=== PATIENT | male | born 1980 | race Caucasian/White ===

== ENCOUNTER 2018-05-26 13:04 | Emergency (ER) | payer MEDICAID ==
[2018-05-26] MEDS: DEXAMETHASONE 10 MG/ML 1 ML INJ IV (15:01)
[2018-05-26] MEDS: KETOROLAC 30 MG INJ IV (15:02)
[2018-05-26 15:12] LABS: ADD MAN DIFF? NO
[2018-05-26 15:13] LABS: BASOPHIL # 0.1 10^3/ul (0.0-0.1); BASOPHILS % 0.4 % (0.0-2.0); EOSINOPHILS # 0.1 10^3/ul (0.0-0.5); EOSINOPHILS % 0.7 % (0.0-7.0); HEMATOCRIT 46.9 % (42.0-52.0); HEMOGLOBIN 15.9 g/dl (14.0-18.0); LYMPHOCYTES # 2.5 10^3/ul (0.8-2.9); LYMPHOCYTES % 14.7 % (15.0-51.0); MEAN CORPUSCULAR HEMOGLOBIN 31.4 pg (29.0-33.0); MEAN CORPUSCULAR HGB CONC 33.9 g/dl (32.0-37.0); MEAN CORPUSCULAR VOLUME 92.5 fl (82.0-101.0); MEAN PLATELET VOLUME 9.4 fl (7.4-10.4); MONOCYTES % 5.9 % (0.0-11.0); NEUTROPHIL # 13.3 10^3/ul (1.6-7.5); NEUTROPHILS % 77.8 % (39.0-77.0); PLATELET COUNT 363 10^3/UL (140-415); RED BLOOD COUNT 5.07 10^6/ul (4.70-6.10); RED CELL DISTRIBUTION WIDTH 12.1 % (11.5-14.5)
[2018-05-26 15:13] LABS: WHITE BLOOD COUNT 17.1 10^3/ul (4.8-10.8)
[2018-05-26] MEDS: CLINDAMYCIN 600 MG/D5W (PMX) 50 ML IVPB (15:15)
[2018-05-26] MEDS: SOD CHLORIDE 0.9% 1,000 ML IV (15:25)
[2018-05-26 15:41] LABS: ALANINE AMINOTRANSFERASE 38 IU/L (13-69); ALBUMIN 4.7 g/dl (3.3-4.9); ALBUMIN/GLOBULIN RATIO 1.34; ALKALINE PHOSPHATASE 105 IU/L (42-121); ANION GAP 15 (8-16); ASPARTATE AMINO TRANSFERASE 30 IU/L (15-46); BILIRUBIN,INDIRECT 0.6 mg/dl (0-1.1); BILIRUBIN,TOTAL 0.6 mg/dl (0.2-1.3); BLOOD UREA NITROGEN 12 mg/dl (7-20); CALCIUM 9.9 mg/dl (8.4-10.2); CARBON DIOXIDE 23 mmol/L (21-31); CHLORIDE 111 mmol/L (97-110); CREATININE 0.76 mg/dl (0.61-1.24); GLUCOSE 96 mg/dl (70-220); POTASSIUM 4.4 mmol/L (3.5-5.1); SODIUM 145 mmol/L (135-144); TOTAL PROTEIN 8.2 g/dl (6.1-8.1)
[2018-05-26] MEDS: IOHEXOL 300MG/ML 150 ML BTL (17:38)
[2018-05-26] MEDS: SOD CHLORIDE 0.9% 100 ML (17:38)
== END 2018-05-26 18:21 | disposition home or self-care (01) ==
LOC: FTE 13:04
DX: J36 Peritonsillar abscess (principal); F17.210 Nicotine dependence, cigarettes, uncomplicated
CPT/HCPCS: 70491; 80053; 85025; 87880; 96365; 96366; 96375; 99285-25